=== PATIENT | female | born 1960 | race Asian ===

== ENCOUNTER 2022-02-18 10:26 | Outpatient (CLI) | payer BC | END 2022-02-18 10:27 | disposition home or self-care (01) | LOC: CSHMAMMO 10:26 | PROVIDERS: ATTEND Student in an Organized Health Care Education/Training Program | DX: Z13.820 Encounter for screening for osteoporosis (principal); M85.89 Other specified disorders of bone density and structure, multiple sites | CPT/HCPCS: 77080 ==

== ENCOUNTER 2024-02-20 12:39 | Outpatient (CLI) | payer BC | END 2024-02-20 12:40 | disposition home or self-care (01) | LOC: CSHMAMMO 12:39 | PROVIDERS: ATTEND Internal Medicine | DX: Z12.31 Encounter for screening mammogram for malignant neoplasm of breast (principal) | CPT/HCPCS: 77063; 77067 ==

== ENCOUNTER 2025-03-01 14:04 | Outpatient (CLI) | payer BC | END 2025-03-01 14:05 | disposition home or self-care (01) | LOC: CSHMAMMO 14:04 | PROVIDERS: ATTEND Internal Medicine | DX: Z12.31 Encounter for screening mammogram for malignant neoplasm of breast (principal) | CPT/HCPCS: 77063; 77067 ==